=== PATIENT | female | born 1995 | race Caucasian/White ===

== ENCOUNTER 2016-11-04 15:24 | Inpatient (IN) | payer MEDICAID, OTHER ==
[~2016-11-04] VITALS: Ht 154.9 cm; Wt 77.0 kg
[~2016-11-04 15:24] MED LIST: FERR325T PO; IBUP600 PO; OXYC1SOL5 PO; PERI8.6T PO
[2016-11-04 15:27] VITALS: BP 111/58; PULSE 162; RESP 20; TEMP 103.2; O2SAT 97
--- NOTE | 2016-11-04 15:38 | PD ---
Physical Exam Date Seen by Provider: Nov 04, 2016 Time Seen by Provider: 15:37 Narrative 21 yo female here for cold like symptoms. High fevers. Cold like symptoms. Has not taken anything for this. With new born. No other symptoms. Very high fever noted. Vitals are unstable in triage with high fever and tachycardia. Awaiting Bed placement. Data Data Last Documented VS Vital Signs Date Time Temp Pulse Resp B/P (MAP) Pulse Ox O2 Delivery O2 Flow Rate FiO2 11/04/16 15:27 103.2 162 20 111/58 (75) 97 Room Air Orders Orders Complete Blood Count With Diff (11/04/16 15:34) Basic Metabolic Panel (Bmp) (11/04/16 15:34) Blood Culture (11/04/16 15:34) Urinalysis - C+S If Indicated (11/04/16 15:34) Chest, Single Ap (11/04/16 15:34) Ed Urine Pregnancytest Poc (11/04/16 15:34) Acetaminophen (Tylenol) (11/04/16 15:45) Lactic Acid Sepsis Protocol (11/04/16 15:34) Influenzae A/B Antigen (11/04/16 15:34) MDM Medical Record Reviewed: Yes Supervised Visit with LAURA: No Rey Dawson Nov 04, 2016 15:38
[2016-11-04] MEDS ORDERED: ACETAMINOPHEN 325 MG TAB PO ONE (15:45)
--- NOTE | 2016-11-04 16:01 | RADRPT ---
EXAM DATE/TIME: 11/04/2016 15:35 [facility] COMPARISON: No previous studies available for comparison. INDICATIONS : Fever and congestion. MEDICAL HISTORY : None. SURGICAL HISTORY : None. ENCOUNTER: Initial ACUITY: 2 days PAIN SCORE: 0/10 LOCATION: Bilateral chest FINDINGS: A single view of the chest demonstrates the lungs to be symmetrically aerated without evidence of mas s, infiltrate or effusion. The cardiomediastinal contours are unremarkable. Osseous structures are intact. CONCLUSION: No acute disease. Eder Granda MD on November 04, 2016 at 15:59 Board Certified Radiologist. This report was verified electronically.
--- NOTE | 2016-11-04 16:12 | PD ---
HPI Chief Complaint: Fever Time Seen by Provider: 16:12 Travel History International Travel<30 days: No Contact w/Intl Traveler<30days: No Traveled to known affect area: No History of Present Illness HPI 21-year-old female with no significant medical history presents to emergency department for evaluation of fever, chills, nausea, vomiting, body aches worsening of the last aches days. Patient states that her symptoms began Wednesday night, but progressively got worse. She went to the urgent care on Wednesday and was prescribed Bactrim, despite no obvious source of infection at that time. She states she started to 10 and has been taking it as prescribed by her symptoms worsen. Today she feels overall weak, febrile, chilled with episodes of diaphoresis. She thinks that she might have the flu. She reports some mild lower abdominal pain. She does not recall any significant urinary symptoms. Denies any vaginal discharge or bleeding. Her only abdominal surgical history . She has no other symptoms to report at this time. [facility] Past Medical History Medical History: Denies Significant Hx Diminished Hearing: No Immunizations Current: Yes ?: Not LMP: MIrena Social History Alcohol Use: No Tobacco Use: No Substance Use: No Allergies-Medications (Allergen,Severity, Reaction): Coded Allergies: No Known Allergies (Verified , 08/25/14) Reported Meds & Prescriptions Reported Meds & Active Scripts Active Review of Systems Except as stated in HPI: all other systems reviewed are Neg Physical Exam Narrative GENERAL: Well-nourished female patient, sitting up in bed, in no acute distress SKIN: Focused skin assessment warm and diaphoretic. HEAD: Atraumatic. Normocephalic. EYES: Pupils equal and round. No scleral icterus. No injection or drainage. ENT: No nasal bleeding or discharge. Pharynx erythematous with no exudates. Mucous membranes pink and moist. NECK: Trachea midline. No JVD. CARDIOVASCULAR: Tachycardic rate and rhythm. No murmur appreciated. RESPIRATORY: No accessory muscle use. Clear to auscultation. Breath sounds equal bilaterally. GASTROINTESTINAL: Abdomen soft nondistended. Suprapubic tenderness to palpation no guarding. No rebound tenderness.. Hepatic and splenic margins not palpable. MUSCULOSKELETAL: No obvious deformities. No clubbing. No cyanosis. No edema. NEUROLOGICAL: Awake and alert. No obvious cranial nerve deficits. Motor grossly within normal limits. Normal speech. PSYCHIATRIC: Appropriate mood and affect; insight and judgment normal. Data Data Last Documented VS Vital Signs Date Time Temp Pulse Resp B/P (MAP) Pulse Ox O2 Delivery O2 Flow Rate FiO2 11/04/16 17:29 99.7 118 20 11/04/16 16:45 99 11/04/16 15:27 Room Air Orders Orders Complete Blood Count With Diff (11/04/16 15:34) Basic Metabolic Panel (Bmp) (11/04/16 15:34) Blood Culture (11/04/16 15:34) Urinalysis - C+S If Indicated (11/04/16 15:34) Chest, Single Ap (11/04/16 15:34) Ed Urine Pregnancytest Poc (11/04/16 15:34) Acetaminophen (Tylenol) (11/04/16 15:45) Lactic Acid Sepsis Protocol (11/04/16 15:34) Influenzae A/B Antigen (11/04/16 15:34) Iv Access Insert/Monitor (11/04/16 16:16) Ecg Monitoring (11/04/16 16:16) Oximetry (11/04/16 16:16) Sodium Chloride 0.9% Flush (Ns Flush) (11/04/16 16:30) Ibuprofen (Motrin) (11/04/16 16:30) Ceftriaxone Inj (Rocephin Inj) (11/04/16 17:30) Urine Culture (11/04/16 15:55) Admit Order (Ed Use Only) (11/04/16 17:41) Labs Laboratory Tests Test 11/04/16 15:55 White Blood Count 17.7 TH/MM3 Red Blood Count 4.53 MIL/MM3 Hemoglobin 11.4 GM/DL Hematocrit 35.4 % Mean Corpuscular Volume 78.2 FL Mean Corpuscular Hemoglobin 25.1 PG Mean Corpuscular Hemoglobin Concent 32.1 % Red Cell Distribution Width 15.9 % Platelet Count 310 TH/MM3 Mean Platelet Volume 7.6 FL Neutrophils (%) (Auto) 78.7 % Lymphocytes (%) (Auto) 6.2 % Monocytes (%) (Auto) 14.9 % Eosinophils (%) (Auto) 0.0 % Basophils (%) (Auto) 0.2 % Neutrophils # (Auto) 13.9 TH/MM3 Lymphocytes # (Auto) 1.1 TH/MM3 Monocytes # (Auto) 2.6 TH/MM3 Eosinophils # (Auto) 0.0 TH/MM3 Basophils # (Auto) 0.0 TH/MM3 CBC Comment AUTO DIFF Differential Comment AUTO DIFF CONFIRMED Urine Color YELLOW Urine Turbidity HAZY Urine pH 6.0 Urine Specific [place] 1.015 Urine Protein 100 mg/dL Urine Glucose (UA) NEG mg/dL Urine Ketones 40 mg/dL Urine Occult Blood MOD Urine Nitrite POS Urine Bilirubin NEG Urine Urobilinogen 4.0 MG/DL Urine Leukocyte Esterase LARGE Urine RBC 31 /hpf Urine WBC /hpf Urine WBC Clumps OCC Urine Squamous Epithelial Cells <1 /hpf Urine Bacteria MANY /hpf Microscopic Urinalysis Comment CULTURE INDICATED Blood Urea Nitrogen 12 MG/DL Creatinine 1.17 MG/DL Random Glucose 103 MG/DL Calcium Level 8.9 MG/DL Sodium Level 134 MEQ/L Potassium Level 3.7 MEQ/L Chloride Level 98 MEQ/L Carbon Dioxide Level 26.1 MEQ/L Anion Gap 10 MEQ/L Estimat Glomerular Filtration Rate 58 ML/MIN Lactic Acid Level 0.8 mmol/L [facility] Medical Decision Making Medical Screen Exam Complete: Yes Emergency Medical Condition: Yes Medical Record Reviewed: Yes Differential Diagnosis Sepsis versus cystitis versus pyelonephritis versus electrolyte abnormality versus pneumonia versus influenza Narrative Course 21-year-old female presents to the emergency department for evaluation. Patient is febrile 103.7 here in the [facility] department with tachycardic with a heart rate of 168. She has some mild suprapubic tenderness to palpation with no guarding and no rebound tenderness. Sepsis workup is initiated. CBC is a leukocytosis of 17.7 with a neutrophilia of 13.9. BMP is without acute concern, however there is some renal insufficiency with a GFR of 58 for a 21-year-old female with no renal history. Laboratory Tests Test 11/04/16 15:55 White Blood Count 17.7 TH/MM3 Red Blood Count 4.53 MIL/MM3 Hemoglobin 11.4 GM/DL Hematocrit 35.4 % Mean Corpuscular Volume 78.2 FL Mean Corpuscular Hemoglobin 25.1 PG Mean Corpuscular Hemoglobin Concent 32.1 % Red Cell Distribution Width 15.9 % Platelet Count 310 TH/MM3 Mean Platelet Volume 7.6 FL Neutrophils (%) (Auto) 78.7 % Lymphocytes (%) (Auto) 6.2 % Monocytes (%) (Auto) 14.9 % Eosinophils (%) (Auto) 0.0 % Basophils (%) (Auto) 0.2 % Neutrophils # (Auto) 13.9 TH/MM3 Lymphocytes # (Auto) 1.1 TH/MM3 Monocytes # (Auto) 2.6 TH/MM3 Eosinophils # (Auto) 0.0 TH/MM3 Basophils # (Auto) 0.0 TH/MM3 CBC Comment AUTO DIFF Differential Comment AUTO DIFF CONFIRMED Urine Color YELLOW Urine Turbidity HAZY Urine pH 6.0 Urine Specific [place] 1.015 Urine Protein 100 mg/dL Urine Glucose (UA) NEG mg/dL Urine Ketones 40 mg/dL Urine Occult Blood MOD Urine Nitrite POS Urine Bilirubin NEG Urine Urobilinogen 4.0 MG/DL Urine Leukocyte Esterase LARGE Urine RBC 31 /hpf Urine WBC /hpf Urine WBC Clumps OCC Urine Squamous Epithelial Cells <1 /hpf Urine Bacteria MANY /hpf Microscopic Urinalysis Comment CULTURE INDICATED Blood Urea Nitrogen 12 MG/DL Creatinine 1.17 MG/DL Random Glucose 103 MG/DL Calcium Level 8.9 MG/DL Sodium Level 134 MEQ/L Potassium Level 3.7 MEQ/L Chloride Level 98 MEQ/L Carbon Dioxide Level 26.1 MEQ/L Anion Gap 10 MEQ/L Estimat Glomerular Filtration Rate 58 ML/MIN Lactic Acid Level 0.8 mmol/L Urinalysis is with 100 proteinuria, 40 ketones, moderate occult blood, positive nitrate, large leukocyte esterase, 31 RBC, innumerable WBC, occasional WBC clumps and many bacteria. Culture is indicated. Patient has been given a gram of Rocephin prior to results. Essentially patient has failed outpatient treatment. She remains with low-grade temperature and tachycardic at a heart rate 118. Patient will be admitted to [facility] hospitalist for IV antibiotics and further evaluation.. Sepsis Criteria SIRS Criteria (2 or more): Temp > 100.9 or < 96.8, Heart rate over 90, WBC > 11746, < 4000 or > 10% bands Sepsis Criteria (SIRS+source): Infect source susp/known Diagnosis Primary Impression: Sepsis Qualified Codes: A41.9 - Sepsis, unspecified organism Additional Impressions: Pyelonephritis Failure of outpatient treatment MARYAM (acute kidney injury) Admitting Information Admitting Physician Requests: Admit Condition: Stable [place] MARIAMA Nov 04, 2016 16:12
[2016-11-04] MEDS ORDERED: IBUPROFEN 800 MG TAB PO ONE (16:30)
[2016-11-04] MEDS ORDERED: SODIUM CHLORIDE 0.9% FLUSH 10 ML FLUSH IV FLUSH PRN ×2 (16:30→18:15)
[2016-11-04 16:31] LABS: AUTOMATED NEUTROPHIL # 13.9 TH/MM3 (1.8-7.7); BASOPHIL % 0.2 % (0.0-2.0); HEMATOCRIT 35.4 % (35.0-46.0); LYMPH % 6.2 % (9.0-44.0); LYMPHOCYTE # 1.1 TH/MM3 (1.0-4.8); MEAN CELL VOLUME 78.2 FL (80.0-100.0); MEAN CORPUSCULAR HEMOGLOBIN 25.1 PG (27.0-34.0); MEAN CORPUSCULAR HGB CONC 32.1 % (32.0-36.0); MONO % 14.9 % (0.0-8.0); NEUT % 78.7 % (16.0-70.0); PLATELET COUNT 310 TH/MM3 (150-450); RED BLOOD COUNT 4.53 MIL/MM3 (4.00-5.30); RED CELL DISTRIBUTION WIDTH 15.9 % (11.6-17.2); WHITE BLOOD COUNT 17.7 TH/MM3 (4.0-11.0)
[2016-11-04 16:41] LABS: HEMO FLAGS AUTO DIFF
[2016-11-04 16:45] VITALS: O2SAT 99
[2016-11-04 16:48] LABS: BICARBONATE 26.1 MEQ/L (21.0-32.0); POTASSIUM 3.7 MEQ/L (3.5-5.1)
[2016-11-04 17:24] LABS: SCAN/DIFF AUTO DIFF CONFIRMED
[2016-11-04 17:29] VITALS: PULSE 118; RESP 20; TEMP 99.7
[2016-11-04] MEDS ORDERED: cefTRIAXone INJ 1,000 MG in SODIUM CHLORIDE 0.9% INJ 25 ML IV ONE (17:30)
[2016-11-04 17:31] LABS: BACTERIA, URINE MANY /hpf; BLOOD, URINE MOD (NEG); COMMENT (UR) CULTURE INDICATED; CULTURE IF INDICATED CULTURE INDICATED; GLUCOSE,URINE NEG (NEG); KETONE, URINE 40 mg/dL (NEG); NITRITE,URINE POS (NEG); SQUAMOUS EPITHELIAL CELL URINE <1 /hpf (0-5); URINE COLOR YELLOW (YELLW/STRAW)
[2016-11-04] MEDS ORDERED: NALOXONE HCL 0.4 MG/ML AMP IV PRN (18:15)
--- NOTE | 2016-11-04 18:28 | HHI.HP ---
HPI Service [facility] Primary Care Physician No Primary Care Physician Admission Diagnosis Sepsis; pyelonephritis Diagnoses: Chief Complaint: Fevers, chills Travel History International Travel<30 Days: No Contact w/Intl Traveler <30 Da: No Traveled to Known Affected Are: No Sepsis Criteria SIRS Criteria (2 or more): Temp > 100.9 or < 96.8, Heart rate over 90, WBC > 78512, < 4000 or > 10% bands Sepsis Criteria (SIRS+source): Infect source susp/known Severe Sepsis (+one): Acute Oliguria/Renal Failure Criteria Outcome: Meets SIRS criteria, Meets sepsis criteria, Meets severe sepsis criteria History of Present Illness Written by Alanna Andrade, acting as scribe for Dr. Thomas on 11/04/16 at 18: 11. Patient is a 21-year-old female with no medical history who came into the hospital for evaluation of high fevers and cold-like symptoms. Patient states that last Wednesday she felt sick. States she has "shivers" "chills." She states that she has nausea, vomiting or and she went to an urgent care center and they told her that it was food poisoning and sent her home. She was sent home with Bactrim antibiotic which she took for 1 day. She continues to feel the same way and has not improved. Today, she feels weak, with fevers and chills, and also diaphoretic and thinking she may haven't have a flu. Denies chest pain, palpitations, headaches. Denies SOB/ dyspnea, cough. Denies abdominal pain, cramping, dysuria, hematura. Reports some nausea, no vomiting, cloudy urine. Review of Systems Except as stated in HPI: all other systems reviewed are Neg Past Family Social History Past Medical History None Past Surgical History C Section x2 Reported Medications Bactrim Allergies: Coded Allergies: No Known Allergies (Verified , 08/25/14) Active Ordered Medications Current Medications Medications (Trade) Dose Ordered Sig/Dori Route Start Time Stop Time Status Last Admin (NS Flush) 2 ml UNSCH PRN IV FLUSH 11/04/16 16:30 Family History Denies any significant family history Social History Occasional alcohol use Denies tobacco use Denies illicit drug use Physical Exam Vital Signs Vital Signs Date Time Temp Pulse Resp B/P (MAP) Pulse Ox O2 Delivery O2 Flow Rate FiO2 11/04/16 17:29 99.7 118 20 11/04/16 16:45 99 11/04/16 15:27 103.2 162 20 111/58 (75) 97 Room Air Physical Exam GENERAL: This is a obese, well-developed patient, in no apparent distress. SKIN: No rashes, ecchymoses or lesions. Warm and dry. Diaphoretic. HEAD: Atraumatic. Normocephalic. No temporal or scalp tenderness. EYES: Pupils equal round and reactive. Extraocular motions intact. No scleral icterus. No injection or drainage. ENT: Nose without bleeding. Throat without erythema. Uvula midline. Airway patent. NECK: Trachea midline. Supple. CARDIOVASCULAR: Tachycardia without murmurs, gallops, or rubs. RESPIRATORY: Clear to auscultation. Breath sounds equal bilaterally. No wheezes , rales, or rhonchi. GASTROINTESTINAL: Abdomen soft, non-tender, nondistended. No guarding. Tenderness to palpate suprapubic area. NO CVA tenderness. MUSCULOSKELETAL: Extremities without clubbing, cyanosis, or edema. No joint tenderness, effusion, or edema noted. No calf tenderness. Negative Homans sign bilaterally. NEUROLOGICAL: Awake and alert. Cranial nerves II through XII intact. Motor and sensory grossly within normal limits. Normal speech. Laboratory Laboratory Tests Test 11/04/16 15:55 White Blood Count 17.7 Red Blood Count 4.53 Hemoglobin 11.4 Hematocrit 35.4 Mean Corpuscular Volume 78.2 Mean Corpuscular Hemoglobin 25.1 Mean Corpuscular Hemoglobin Concent 32.1 Red Cell Distribution Width 15.9 Platelet Count 310 Mean Platelet Volume 7.6 Neutrophils (%) (Auto) 78.7 Lymphocytes (%) (Auto) 6.2 Monocytes (%) (Auto) 14.9 Eosinophils (%) (Auto) 0.0 Basophils (%) (Auto) 0.2 Neutrophils # (Auto) 13.9 Lymphocytes # (Auto) 1.1 Monocytes # (Auto) 2.6 Eosinophils # (Auto) 0.0 Basophils # (Auto) 0.0 CBC Comment AUTO DIFF Differential Comment AUTO DIFF CONFIRMED Urine Color YELLOW Urine Turbidity HAZY Urine pH 6.0 Urine Specific [place] 1.015 Urine Protein 100 Urine Glucose (UA) NEG Urine Ketones 40 Urine Occult Blood MOD Urine Nitrite POS Urine Bilirubin NEG Urine Urobilinogen 4.0 Urine Leukocyte Esterase LARGE Urine RBC 31 Urine WBC Urine WBC Clumps OCC Urine Squamous Epithelial Cells <1 Urine Bacteria MANY Microscopic Urinalysis Comment CULTURE INDICATED Blood Urea Nitrogen 12 Creatinine 1.17 Random Glucose 103 Calcium Level 8.9 Sodium Level 134 Potassium Level 3.7 Chloride Level 98 Carbon Dioxide Level 26.1 Anion Gap 10 Estimat Glomerular Filtration Rate 58 Lactic Acid Level 0.8 Date/Time Source Procedure Growth Status 11/04/16 16:00 Blood Peripheral Aerobic Blood Culture Pending Received 11/04/16 16:00 Blood Peripheral Anaerobic Blood Culture Pending Received 11/04/16 16:10 Nasal Washing Influenza Types A,B Antigen (MICHELLE) - Final NEGATIVE FOR FLU A AND B ANTIGEN.... Complete 11/04/16 15:55 Urine Clean Catch Urine Culture Pending Received Result Diagram: 11/04/16 1555 11/04/16 1555 Imaging Last Impressions Chest X-Ray 11/04/16 1534 Signed Impressions: Service Date/Time: Wednesday, November 04, 2016 15:35 - CONCLUSION: No acute disease. Eder Granda MD Septic Shock Reassessment Heart: Regular rate and rhythm Skin: Moist Caprini VTE Risk Assessment Caprini VTE Risk Assessment: No/Low Risk (score <= 1) Caprini Risk Assessment Model Point Value = 1 Point Value = 2 Point Value = 3 Point Value = 5 Age 41-60 Minor surgery BMI > 25 kg/m2 Swollen legs Varicose veins or History of unexplained or recurrent spontaneous Oral contraceptives or hormone replacement Sepsis (< 1 month) Serious lung disease, including pneumonia (< 1 month) Abnormal pulmonary function Acute myocardial infarction Congestive heart failure (< 1 month) History of inflammatory bowel disease Medical patient at bed rest Age 61-74 Arthroscopic surgery Major open surgery (> 45 min) Laparoscopic surgery (> 45 min) Malignancy Confined to bed (> 72 hours) Immobilizing plaster cast Central venous access Age >= 75 History of VTE Family history of VTE Factor V Leiden Prothrombin [id number] Lupus anticoagulant Anticardiolipin antibodies Elevated serum homocysteine Heparin-induced thrombocytopenia Other congenital or acquired thrombophilia Stroke (< 1 month) Elective arthroplasty Hip, pelvis, or leg fracture Acute spinal cord injury (< 1 month) Prophylaxis Regimen Total Risk Factor Score Risk Level Prophylaxis Regimen 0-1 Low Early ambulation 2 Moderate Order ONE of the following: *Sequential Compression Device (SCD) *Heparin 5000 units SQ BID 3-4 Higher Order ONE of the following medications: *Heparin 5000 units SQ TID *Enoxaparin/Lovenox 40 mg SQ daily (WT < 150 kg, CrCl > 30 mL/min) *Enoxaparin/Lovenox 30 mg SQ daily (WT < 150 kg, CrCl > 10-29 mL/min) *Enoxaparin/Lovenox 30 mg SQ BID (WT < 150 kg, CrCl > 30 mL/min) AND/OR *Sequential Compression Device (SCD) 5 or more Highest Order ONE of the following medications: *Heparin 5000 units SQ TID (Preferred with Epidurals) *Enoxaparin/Lovenox 40 mg SQ daily (WT < 150 kg, CrCl > 30 mL/min) *Enoxaparin/Lovenox 30 mg SQ daily (WT < 150 kg, CrCl > 10-29 mL/min) *Enoxaparin/Lovenox 30 mg SQ BID (WT < 150 kg, CrCl > 30 mL/min) AND *Sequential Compression Device (SCD) Assessment and Plan Problem List: (1) Sepsis ICD Code: A41.9 - Sepsis, unspecified organism Status: Acute (2) MARYAM (acute kidney injury) ICD Code: N17.9 - Acute kidney failure, unspecified Status: Acute (3) Failure of outpatient treatment ICD Code: Z78.9 - Other specified health status Status: Acute (4) Pyelonephritis ICD Code: N12 - Tubulo-interstitial nephritis, not specified as acute or chronic Status: Acute Assessment and Plan Patient is a 21-year-old female with no medical history who came into the hospital for evaluation of high fevers and cold-like symptoms. Sepsis Pyelonephritis - Leukocytosis WBC 17.0, Febrile 103 - Chest x-ray with no acute disease - UA Positive, microbiology pending - Ceftriaxone IV - Tylenol for fevers - IV fluids NS bolus - Blood cultures, follow up results - Repeat labs in AM Acute kidney injury - Possibly secondary to pyelonephritis, sepsis - IV fluid hydration - Encourage by mouth intake - Avoid nephrotoxins - Recheck BMP tomorrow Hyponatremia - Secondary to dehydration - IV fluids NS - Recheck BMP tomorrow DVT prop early ambulation, SCDs This note was transcribed by reyna [Alanna Andrade]. I, Dr. Nicole Thomas personally performed the history, physical exam, and medical decision making; and confirmed the accuracy of the information in the transcribed note. Authenticated by Dr. Nicole Thomas on 11/04/16 at 18:20. Code Status Full code Discussed Condition With Patient, nursing, ED attending Physician Certification 2 Midnight Certification Type: Admission for Inpatient Services Order for Inpatient Services The services are ordered in accordance with Medicare regulations or non- Medicare payer requirements, as applicable. In the case of services not specified as inpatient-only, they are appropriately provided as inpatient services in accordance with the 2-midnight benchmark. Estimated LOS (days): 2 days is the estimated time the patient will need to remain in the hospital, assuming treatment plan goals are met and no additional complications. Post-Hospital Plan: Home Problem Qualifiers (1) Sepsis: Qualified Codes: A41.9 - Sepsis, unspecified organism Alanna Jerome Nov 04, 2016 18:28 Nicole Thomas MD Nov 04, 2016 18:30
[2016-11-04 20:00] VITALS: BP 105/56; PULSE 99; RESP 20; TEMP 98.1; O2SAT 96
[2016-11-04] MEDS: SODIUM CHLOR 0.9% 1000 ML INJ 1,000 ML IV SCH (20:45)
[2016-11-04] MEDS: SODIUM CHLORIDE 0.9% FLUSH 10 ML FLUSH IV FLUSH SCH (20:45)
[2016-11-04] MEDS: ONDANSETRON HCL 4 MG/2 ML VIAL IVP PRN (20:47)
[2016-11-05] VITALS (9 sets, daily range): BP systolic 95–114; BP diastolic 53–66; PULSE 87–148; RESP 16–20; TEMP 96.8–104.3; O2SAT 96–99
[2016-11-05] MEDS: ONDANSETRON HCL 4 MG/2 ML VIAL IVP PRN ×3 (02:10→21:02)
[2016-11-05] MEDS: ACETAMINOPHEN 325 MG TAB PO PRN ×2 (02:11→11:49)
[2016-11-05] MEDS: TEMAZEPAM 15 MG CAP PO PRN (03:57)
[2016-11-05 07:34] LABS: AUTOMATED NEUTROPHIL # 11.6 TH/MM3 (1.8-7.7); BASOPHIL % 0.3 % (0.0-2.0); EOSINOPHIL % 0.1 % (0.0-4.0); HEMATOCRIT 32.1 % (35.0-46.0); HEMO FLAGS DIFF FINAL; LYMPH % 9.9 % (9.0-44.0); LYMPHOCYTE # 1.5 TH/MM3 (1.0-4.8); MEAN CELL VOLUME 78.5 FL (80.0-100.0); MEAN CORPUSCULAR HEMOGLOBIN 25.7 PG (27.0-34.0); MEAN CORPUSCULAR HGB CONC 32.8 % (32.0-36.0); MONO % 12.8 % (0.0-8.0); NEUT % 76.9 % (16.0-70.0); PLATELET COUNT 251 TH/MM3 (150-450); RED BLOOD COUNT 4.09 MIL/MM3 (4.00-5.30); RED CELL DISTRIBUTION WIDTH 16.2 % (11.6-17.2); WHITE BLOOD COUNT 15.1 TH/MM3 (4.0-11.0)
[2016-11-05 08:07] LABS: BICARBONATE 25.2 MEQ/L (21.0-32.0); POTASSIUM 3.5 MEQ/L (3.5-5.1)
[2016-11-05] MEDS: SODIUM CHLOR 0.9% 1000 ML INJ 1,000 ML IV SCH ×2 (08:17→21:02)
[2016-11-05] MEDS: SODIUM CHLORIDE 0.9% FLUSH 10 ML FLUSH IV FLUSH SCH ×2 (08:17→21:00)
[2016-11-05] MEDS: cefTRIAXone INJ 1,000 MG in SODIUM CHLORIDE 0.9% INJ 100 ML IV SCH ×2 (08:17→21:02)
[2016-11-05] MEDS ORDERED: IBUPROFEN 800 MG TAB PO ONE (11:15)
--- NOTE | 2016-11-05 11:19 | HHI.PR ---
Subjective Remarks Patient is having chills this morning. Fever earlier this morning up to 102.2. She complains of achiness all over. No shortness of breath. Objective Vitals Vital Signs Date Time Temp Pulse Resp B/P (MAP) Pulse Ox O2 Delivery O2 Flow Rate FiO2 11/05/16 08:00 96.8 92 16 99/59 (72) 98 11/05/16 06:00 99.9 11/05/16 04:00 100.1 111 18 114/61 (78) 97 11/05/16 03:11 102.2 140 20 108/66 (80) 96 11/05/16 02:05 104.3 11/05/16 00:00 98.9 127 18 106/53 (70) 99 11/04/16 20:00 98.1 99 20 105/56 (72) 96 11/04/16 17:29 99.7 118 20 11/04/16 16:45 99 11/04/16 15:27 103.2 162 20 111/58 (75) 97 Room Air I/O 11/04/16 11/04/16 11/04/16 11/05/16 11/05/16 11/05/16 06:59 14:59 22:59 06:59 14:59 22:59 Intake Total 0 ml 678 ml Output Total 240 ml Balance 0 ml 438 ml Intake IV Total 0 ml 678 ml Output Emesis 240 ml # Voids 2 Result Diagram: 11/05/16 0622 11/05/16 0622 Imaging Last Impressions Chest X-Ray 11/04/16 1534 Signed Impressions: Service Date/Time: Friday, November 04, 2016 15:35 - CONCLUSION: No acute disease. Eder Granda MD Objective Remarks GENERAL: Patient is having chills and appear uncomfortable. CARDIOVASCULAR: Normal rate and regular rhythm without murmurs, gallops, or rubs. RESPIRATORY: Good respiratory efforts. Breath sounds equal and clear to auscultation bilaterally. GASTROINTESTINAL: Abdomen soft, non-tender, non-distended. Normal active bowel sounds MUSCULOSKELETAL: Extremities without cyanosis, or edema. : No CVA tenderness. NEURO: Alert & Oriented x4 to person, place, time, situation. Moves all ext x4 PSYCH: Appropriate mood and affect. A/P Problem List: (1) Sepsis ICD Code: A41.9 - Sepsis, unspecified organism Status: Acute (2) MARYAM (acute kidney injury) ICD Code: N17.9 - Acute kidney failure, unspecified Status: Acute (3) Failure of outpatient treatment ICD Code: Z78.9 - Other specified health status Status: Acute (4) Pyelonephritis ICD Code: N12 - Tubulo-interstitial nephritis, not specified as acute or chronic Status: Acute Assessment and Plan 21-year-old female admitted with sepsis secondary to UTI: Sepsis Pyelonephritis: Discussed with micro, so far urine is growing gram-negative rods. Blood culture so far negative. Continue Ceftriaxone IV Tylenol and ibuprofen as needed for fever or pain. Follow urine and blood cultures. Acute kidney injury: Likely related to sepsis and dehydration. - Improving. - IV fluid hydration - Encourage by mouth intake - Avoid nephrotoxins DVT prop early ambulation, SCDs Problem Qualifiers (1) Sepsis: Qualified Codes: A41.9 - Sepsis, unspecified organism Nicole Thomas MD Nov 05, 2016 11:19
[2016-11-05] MEDS ORDERED: SODIUM CHLOR 0.9% 1000 ML INJ 1,000 ML IV ONE (12:45)
[2016-11-05] MEDS: IBUPROFEN 800 MG TAB PO PRN (21:04)
[2016-11-05] MEDS: BENZONATATE 100 MG CAP PO PRN (22:43)
--- NOTE | 2016-11-05 22:47 | RADRPT ---
EXAM DATE/TIME: 11/05/2016 22:21 [facility] COMPARISON: CHEST SINGLE AP, November 04, 2016, 15:35. INDICATIONS : Cough MEDICAL HISTORY : None. SURGICAL HISTORY : None. ENCOUNTER: Subsequent ACUITY: 2 days PAIN SCORE: 0/10 LOCATION: chest FINDINGS: Portable AP view of the chest demonstrates a normal-sized cardiac silhouette. No effusion, consolidat ion, or pneumothorax is visualized. Hazy opacity overlying the left mid and lower lung zone is felt t o be technical. The bones and soft tissues demonstrate no acute abnormality. CONCLUSION: No acute cardiopulmonary abnormality given the technique. The hazy opacity overlying the left lower l maya zone is felt to be related to technique. Consider good inspiratory formal PA and lateral views of the chest at followup imaging. Tavares Torres MD on November 05, 2016 at 22:43 Board Certified Radiologist. This report was verified electronically.
[2016-11-06] VITALS: BP 113/63; PULSE 116; RESP 18; TEMP 98.9; O2SAT 97
[2016-11-06] MEDS: ACETAMINOPHEN 325 MG TAB PO PRN (00:19)
[2016-11-06] MEDS: SODIUM CHLOR 0.9% 1000 ML INJ 1,000 ML IV SCH ×3 (00:21→20:00)
[2016-11-06] MEDS: TEMAZEPAM 15 MG CAP PO PRN (02:20)
[2016-11-06 08:00] VITALS: BP 84/54; PULSE 72; RESP 16; TEMP 97.9; O2SAT 98
[2016-11-06] MEDS: cefTRIAXone INJ 1,000 MG in SODIUM CHLORIDE 0.9% INJ 100 ML IV SCH ×2 (08:29→20:04)
[2016-11-06] MEDS: BENZONATATE 100 MG CAP PO PRN ×2 (08:33→17:53)
[2016-11-06] MEDS: SODIUM CHLORIDE 0.9% FLUSH 10 ML FLUSH IV FLUSH SCH ×2 (08:35→20:04)
[2016-11-06 09:12] VITALS: BP 100/78
[2016-11-06] MEDS: IBUPROFEN 800 MG TAB PO PRN ×2 (11:50→20:14)
--- NOTE | 2016-11-06 11:51 | HHI.PR ---
Subjective Remarks Last documented fever at midnight last night. No chills this morning. Urine grew E Coli. C/O constipation. Objective Vitals Vital Signs Date Time Temp Pulse Resp B/P (MAP) Pulse Ox O2 Delivery O2 Flow Rate FiO2 11/06/16 09:12 100/78 (85) 11/06/16 08:00 97.9 72 16 84/54 (64) 98 11/06/16 00:00 98.9 116 18 113/63 (80) 97 11/05/16 20:00 97.8 87 16 114/54 (74) 98 11/05/16 16:00 97.2 106 17 108/60 (76) 99 11/05/16 12:00 103.0 148 18 95/58 (70) 99 I/O 11/05/16 11/05/16 11/05/16 11/06/16 11/06/16 11/06/16 07:00 15:00 23:00 07:00 15:00 23:00 Intake Total 678 ml 2270 ml Output Total 240 ml 800 ml Balance 438 ml 1470 ml Intake Oral 240 ml IV Total 678 ml 2030 ml Output Urine Total 800 ml Emesis 240 ml # Voids 2 2 # Bowel Movements 0 Result Diagram: 11/05/1662111/05/16621 Objective Remarks GENERAL: Patient is having chills and appear uncomfortable. CARDIOVASCULAR: Normal rate and regular rhythm without murmurs, gallops, or rubs. RESPIRATORY: Good respiratory efforts. Breath sounds equal and clear to auscultation bilaterally. GASTROINTESTINAL: Abdomen soft, non-tender, non-distended. Normal active bowel sounds MUSCULOSKELETAL: Extremities without cyanosis, or edema. : No CVA tenderness. NEURO: Alert & Oriented x4 to person, place, time, situation. Moves all ext x4 PSYCH: Appropriate mood and affect. A/P Problem List: (1) Sepsis ICD Code: A41.9 - Sepsis, unspecified organism Status: Acute (2) MARYAM (acute kidney injury) ICD Code: N17.9 - Acute kidney failure, unspecified Status: Acute (3) Failure of outpatient treatment ICD Code: Z78.9 - Other specified health status Status: Acute (4) Pyelonephritis ICD Code: N12 - Tubulo-interstitial nephritis, not specified as acute or chronic Status: Acute Assessment and Plan 21-year-old female admitted with sepsis secondary to UTI: Sepsis Pyelonephritis: Urine grew Escherichia coli. Resistant to Bactrim which she was taking outpatient but is sensitive to Rocephin. Blood culture so far negative. Continue Ceftriaxone IV Tylenol and ibuprofen as needed for fever or pain. Acute kidney injury: Likely related to sepsis and dehydration. -Resolved with IV fluid. Encourage by mouth intake. - Avoid nephrotoxins Constipation: Add milk of magnesia. DVT prop early ambulation, SCDs Problem Qualifiers (1) Sepsis: Qualified Codes: A41.9 - Sepsis, unspecified organism Nicole Thomas MD Nov 06, 2016 11:51
[2016-11-06 12:00] VITALS: BP 111/62; PULSE 106; RESP 18; TEMP 97.3; O2SAT 99
[2016-11-06] MEDS ORDERED: MAGNESIUM HYDROXIDE SUSP 30 ML CUP PO ONE (13:00)
[2016-11-06 16:00] VITALS: BP 108/68; PULSE 78; RESP 16; TEMP 98.6; O2SAT 99
[2016-11-06] MEDS ORDERED: MAGNESIUM HYDROXIDE SUSP 30 ML CUP PO PRN (18:00)
[2016-11-06 20:00] VITALS: BP 111/68; PULSE 105; RESP 18; TEMP 99.7; O2SAT 99
[2016-11-07] VITALS: BP 106/57; PULSE 115; RESP 18; TEMP 98.8; O2SAT 99
[2016-11-07] MEDS: IBUPROFEN 800 MG TAB PO PRN (02:08)
[2016-11-07] MEDS: SODIUM CHLOR 0.9% 1000 ML INJ 1,000 ML IV SCH ×2 (02:08→09:40)
[2016-11-07] MEDS: BENZONATATE 100 MG CAP PO PRN (04:22)
[2016-11-07 05:54] LABS: HEMATOCRIT 29.2 % (35.0-46.0); MEAN CELL VOLUME 79.7 FL (80.0-100.0); MEAN CORPUSCULAR HEMOGLOBIN 25.8 PG (27.0-34.0); MEAN CORPUSCULAR HGB CONC 32.4 % (32.0-36.0); PLATELET COUNT 251 TH/MM3 (150-450); RED BLOOD COUNT 3.67 MIL/MM3 (4.00-5.30); RED CELL DISTRIBUTION WIDTH 16.4 % (11.6-17.2); REVIEW FLAG FINAL; WHITE BLOOD COUNT 6.1 TH/MM3 (4.0-11.0)
[2016-11-07 08:00] VITALS: BP 104/70; PULSE 74; RESP 16; TEMP 96.6; O2SAT 97
[2016-11-07] MEDS: SODIUM CHLORIDE 0.9% FLUSH 10 ML FLUSH IV FLUSH SCH (09:00)
[2016-11-07] MEDS: cefTRIAXone INJ 1,000 MG in SODIUM CHLORIDE 0.9% INJ 100 ML IV SCH (09:38)
[2016-11-07] MEDS ORDERED: CEFU1TAB20 PO (11:18)
[2016-11-07] MEDS ORDERED: IBUP800T23 PO (11:18)
--- NOTE | 2016-11-07 11:19 | HHI.DCPOC ---
Discharge Care Plan Diagnosis: (1) Sepsis (2) Pyelonephritis (3) MARYAM (acute kidney injury) (4) Failure of outpatient treatment Goals to Promote Your Health * To prevent worsening of your condition and complications * To maintain your health at the optimal level Directions to Meet Your Goals Take your medications as prescribed Follow your dietary instruction Follow activity as directed Keep your appointments as scheduled Take your immunizations and boosters as scheduled If your symptoms worsen call your PCP, if no PCP go to Urgent Care Center or Emergency Room Smoking is Dangerous to Your Health. Avoid second hand smoke Call the 24-hour hour crisis hotline for domestic abuse at Nicole Thomas MD Nov 07, 2016 11:18
--- NOTE | 2016-11-07 11:20 | HHI.DS ---
Discharge Summary Admission Date Nov 04, 2016 at 17:43 Discharge Date: Nov 07, 2016 Admitting Diagnosis Sepsis; pyelonephritis (1) Sepsis ICD Code: A41.9 - Sepsis, unspecified organism Status: Acute (2) MARYAM (acute kidney injury) ICD Code: N17.9 - Acute kidney failure, unspecified Status: Acute (3) Failure of outpatient treatment ICD Code: Z78.9 - Other specified health status Status: Acute (4) Pyelonephritis ICD Code: N12 - Tubulo-interstitial nephritis, not specified as acute or chronic Status: Acute Procedures None Brief History - From Admission Patient is a 21-year-old female with no medical history who came into the hospital for evaluation of high fevers and cold-like symptoms. Patient states that last Wednesday she felt sick. States she has "shivers" "chills." She states that she has nausea, vomiting or and she went to an urgent care center and they told her that it was food poisoning and sent her home. She was sent home with Bactrim antibiotic which she took for 1 day. She continues to feel the same way and has not improved. Today, she feels weak, with fevers and chills, and also diaphoretic and thinking she may haven't have a flu. Denies chest pain, palpitations, headaches. Denies SOB/ dyspnea, cough. Denies abdominal pain, cramping, dysuria, hematura. Reports some nausea, no vomiting, cloudy urine. CBC/BMP: 11/07/16 0417 11/05/16 0622 Significant Findings Laboratory Tests Test 11/04/16 15:55 11/05/16 06:22 11/07/16 04:17 White Blood Count 17.7 TH/MM3 (4.0-11.0) 15.1 TH/MM3 (4.0-11.0) Hemoglobin 11.4 GM/DL (11.6-15.3) 10.5 GM/DL (11.6-15.3) 9.5 GM/DL (11.6-15.3) Mean Corpuscular Volume 78.2 FL (80.0-100.0) 78.5 FL (80.0-100.0) 79.7 FL (80.0-100.0) Mean Corpuscular Hemoglobin 25.1 PG (27.0-34.0) 25.7 PG (27.0-34.0) 25.8 PG (27.0-34.0) Neutrophils (%) (Auto) 78.7 % (16.0-70.0) 76.9 % (16.0-70.0) Lymphocytes (%) (Auto) 6.2 % (9.0-44.0) Monocytes (%) (Auto) 14.9 % (0.0-8.0) 12.8 % (0.0-8.0) Neutrophils # (Auto) 13.9 TH/MM3 (1.8-7.7) 11.6 TH/MM3 (1.8-7.7) Monocytes # (Auto) 2.6 TH/MM3 (0-0.9) 1.9 TH/MM3 (0-0.9) Urine Turbidity HAZY (CLEAR) Urine Protein 100 mg/dL (NEG-TRACE) Urine Ketones 40 mg/dL (NEG) Urine Occult Blood MOD (NEG) Urine Nitrite POS (NEG) Urine Urobilinogen 4.0 MG/DL (LESS THAN Urine Leukocyte Esterase LARGE (NEG) Urine RBC 31 /hpf (0-3) Urine WBC Clumps OCC (NONE) Urine Bacteria MANY /hpf (NONE) Creatinine 1.17 MG/DL (0.50-1.00) Sodium Level 134 MEQ/L (136-145) Estimat Glomerular Filtration Rate 58 ML/MIN (>89) 75 ML/MIN (>89) Hematocrit 32.1 % (35.0-46.0) 29.2 % (35.0-46.0) Random Glucose 112 MG/DL (74-106) Calcium Level 8.1 MG/DL (8.5-10.1) Red Blood Count 3.67 MIL/MM3 (4.00-5.30) Imaging Last Impressions Chest X-Ray 11/05/16 0000 Signed Impressions: Service Date/Time: October 22:21 - CONCLUSION: No acute cardiopulmonary abnormality given the technique. The hazy opacity overlying the left lower lung zone is felt to be related to technique. Consider good inspiratory formal PA and lateral views of the chest at followup imaging. Tavares Torres MD PE at Discharge GENERAL: Patient is having chills and appear uncomfortable. CARDIOVASCULAR: Normal rate and regular rhythm without murmurs, gallops, or rubs. RESPIRATORY: Good respiratory efforts. Breath sounds equal and clear to auscultation bilaterally. GASTROINTESTINAL: Abdomen soft, non-tender, non-distended. Normal active bowel sounds MUSCULOSKELETAL: Extremities without cyanosis, or edema. : No CVA tenderness. NEURO: Alert & Oriented x4 to person, place, time, situation. Moves all ext x4 PSYCH: Appropriate mood and affect. Pt update on day of discharge Patient reports she is feeling much better. No fevers. No abdominal pain. Hospital Course 21-year-old female admitted with sepsis secondary to UTI. She failed outpatient treatment with Bactrim. Urine culture grew Escherichia coli that was resistant to Bactrim. The patient was treated with IV Rocephin. She improved over time and is discharged on cefuroxime to complete the course of antibiotics. The patient also presented with acute kidney injury. This was likely related to sepsis and dehydration. Her renal function normalized with IV fluid. Pt Condition on Discharge: Good Discharge Disposition: Discharge Home Discharge Time: <= 30 minutes Discharge Instructions DIET: Follow Instructions for: As Tolerated, No Restrictions Activities you can perform: Regular-No Restrictions New Medications: Cefuroxime (Cefuroxime) 500 Mg Tab 500 MG PO BID for Infection, #12 TAB 0 Refills Ibuprofen (Ibuprofen) 800 Mg Tab 800 MG PO Q6H PRN for PAIN SCALE 1 TO 10, #10 TAB Nicole Thomas MD Nov 07, 2016 11:20
== END 2016-11-07 13:17 | disposition home or self-care (01) | DRG 872 ==
LOC: NEPC 15:24 → NEDH 17:43 → N07B 18:52
PROVIDERS: ADMIT Family Medicine; ATTEND Family Medicine
DX: A41.51 Sepsis due to Escherichia coli [E. coli] (principal); N17.9 Acute kidney failure, unspecified; N12 Tubulo-interstitial nephritis, not specified as acute or chronic; E87.1 Hypo-osmolality and hyponatremia; R65.20 Severe sepsis without septic shock; B96.20 Unspecified Escherichia coli [E. coli] as the cause of diseases classified elsewhere; E86.0 Dehydration; K59.00 Constipation, unspecified
CPT/HCPCS: 71010; 80048; 81001; 83605; 84703; 85025; 85027; 87040; 87077; 87086; 87186; 87804; 96374; J0696; J2405; J7030